=== PATIENT | male | born 1980 | race Caucasian/White ===

== ENCOUNTER 2020-07-28 05:30 | Day surgery (SDC) | payer OTHER, SELFPAY ==
[2020-07-28] MEDS ORDERED: Lactated Ringers 1,000 ML IV SCH (06:30)
[2020-07-28] MEDS ORDERED: Nozin Nasal Sanitizer NASBOTH ONE (06:30)
[2020-07-28] MEDS ORDERED: Bupivacaine 0.5% 50 ML MDV ONE (06:56)
[2020-07-28] MEDS ORDERED: Bupivacaine 0.5%/EPINEPHrine 1:200,000 50 ML MDV ONE (06:56)
[2020-07-28] MEDS ORDERED: ceFAZolin 1 GM in Premix Bag 1 BAG IV ONE (07:00)
[2020-07-28] MEDS ORDERED: Propofol 200 MG/20 ML SDV ONE ×3 (07:31→09:00)
[2020-07-28] MEDS ORDERED: fentaNYL 100 MCG/2 ML SDV ONE ×2 (07:31→08:20)
[2020-07-28] MEDS ORDERED: Midazolam 1 MG/ML 2 ML SDV ONE ×2 (07:31→08:06)
[2020-07-28] MEDS ORDERED: Bupivacaine 0.5% 30 ML SDV ONE (07:32)
[2020-07-28] MEDS ORDERED: Acetaminophen/oxyCODONE 325-5 MG Tab PO PRN (10:06)
--- NOTE | 2020-08-09 15:34 | OR ---
DATE OF PROCEDURE: 07/28/2020 SURGEON: Oliverio Davis MD PREOPERATIVE DIAGNOSIS: Ruptured right distal biceps tendon. POSTOPERATIVE DIAGNOSIS: Ruptured right distal biceps tendon. PROCEDURE: Repair of right distal biceps. ANESTHESIA: Axillary block with sedation. INDICATIONS: Chuck is a 40-year-old gentleman who sustained injury to his right elbow approximately 1 month ago, while lifting felt a series of snaps in his elbow and has had difficulty with pain on flexion and supination since that time. Examination and imaging including MRI revealed rupture of the right distal biceps with evidence of 1 small strand still intact preventing complete proximal migration. He now presents for repair. Risks, benefits, and potential complications were discussed. PROCEDURE IN DETAIL: After adequate anesthesia was obtained, the patient was placed supine with a tourniquet about the upper arm. The arm was prepped and draped in a sterile fashion. Exsanguinated and tourniquet inflated to 250 mmHg pressure. Incision was made in the elbow crease, carried down through the subcutaneous tissues. Antecubital vein was identified and retracted. Biceps tendon sheath was identified. Lacertus fibrosus was still intact. Palpating down along the tendon sheath, the major portion of the tendon was felt to be disrupted with a small band still intact onto the tuberosity. This consisted of perhaps 10% of the tendon. Abreu scissors was used to divide the remaining portion of the tendon and the end of the tendon was then delivered into the incision. This showed degenerative change and some scarring. Soft tissues were cleared and the end was tapered. FiberWire suture was then placed through the tendon in a whipstitch fashion. Tuberosity was cleared of soft tissues and retractors were placed. The arm was held in supination. A guide pin for the TightRope implant was placed through the tuberosity. This was then overdrilled with a cannulated drill through the far cortex. TightRope was secured to the end of the tendon and the end of the tendon was sized to just under 8 mm. The anterior cortex was then drilled over the guide. Free end of the TightRope was placed through the small opening on the opposite cortex and pulled snug up against the cortex. The arm was then flexed about 45 degrees and the sutures were tightened, pulling the tendon down into the radius. Ends of the sutures were then tied and cut. At the end of the procedure, the arm could be placed in extension with good tension on the repair. The wound was irrigated. Fascia was closed with 0 Vicryl in interrupted fashion. Skin was closed with 2-0 Vicryl and a running 3-0 Monocryl. Steri-Strips were applied. Wound was infiltrated with Marcaine and a sterile dressing was applied and the arm was placed into a sling. The patient tolerated the procedure very well. There were no complications. He was taken from the operating room in stable condition. Oliverio Davis MD /[id number] MTDD
== END 2020-07-28 11:06 | disposition home or self-care (01) ==
LOC: JP.SDS 05:30
PROVIDERS: ATTEND Specialist
DX: S46.211A Strain of muscle, fascia and tendon of other parts of biceps, right arm, initial encounter (principal); G47.33 Obstructive sleep apnea (adult) (pediatric); E11.9 Type 2 diabetes mellitus without complications; E66.09 Other obesity due to excess calories; Z01.812 Encounter for preprocedural laboratory examination; Z20.828 Contact with and (suspected) exposure to other viral communicable diseases; Z68.41 Body mass index [BMI] 40.0-44.9, adult
CPT/HCPCS: 24342; 36415; 80048; 85027; 87635; A9270; C1776; J0690; J2250; J2704; J3010; J3490; J7120; U0002